=== PATIENT | female | born 1995 | race Caucasian/White ===

== ENCOUNTER 2020-01-07 13:53 | Emergency (ER) | payer OTHER, SELFPAY ==
--- NOTE | 2020-01-07 14:05 | ED.GENADULT ---
HPI - General Adult General Chief complaint: Nausea/Vomiting/Diarrhea Stated complaint: diahrea nausea Time Seen by Provider: 01/07/20 14:14 Source: patient Mode of arrival: ambulatory Limitations: no limitations History of Present Illness HPI narrative: 24-year-old female patient presents to the [facility] with complaints of diarrhea and nausea as well as just feeling overall tired that started today. Patient denies coming into contact with anything that she is allergic to. Patient denies any vomiting. Patient denies or breast-feeding. Denies any fevers, sore throat or cough. Denies any chest pain or shortness of breath. 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 Denies coming into contact with anybody that has had a cold recently. Related Data Allergies Allergy/AdvReac Type Severity Reaction Status Date / Time No Known Allergies Allergy Verified 01/07/20 14:14 Review of Systems Review of Systems: Narrative: CONSTITUTIONAL: Denies fever, chills, or sweats. EYES: Denies visual changes, redness, or discharge. ENT: Denies rhinorrhea, congestion, sore throat, or otalgia. CARDIOVASCULAR: Denies chest pain, palpitations, or edema. RESPIRATORY: Denies cough or dyspnea. GASTROINTESTINAL: Denies abdominal pain, positive nausea, denies vomiting, positive diarrhea. GENITOURINARY: Denies dysuria or hematuria. SKIN: Denies rash or itching. MUSCULOSKELETAL: Denies back pain, joint pain, or myalgia. NEUROLOGIC: Denies headache, numbness, or weakness. PSYCHIATRIC: Denies anxiety or depression. [facility] Past Medical History Medical History (Updated 01/07/20 @ 14:43 by ERIK Do) Anxiety Depression Self-mutilation Comments At the time of my signature I agree with nursing past medical history, surgical, social, and family history. There is no relevant family history pertinent to the presenting complaint. Exam Narrative: Exam Narrative: GENERAL: Well-appearing, well-nourished, and in no acute distress. HEAD: Normocephalic, atraumatic. EYES: PERRLA and EOMI. ENT: Nares clear, no rhinorrhea or epistaxis. Mucous membranes moist. Posterior pharynx no erythema, tonsil enlargement, exudates or lesions present. Bilateral TMs are clear no erythema or foreign bodies in the canal. NECK: Supple. No lymphadenopathy CHEST: Clear to auscultation. No respiratory distress. HEART: Regular rate and rhythm. No murmur heard. Normal peripheral pulses. ABDOMEN: Soft, flat, nondistended. No guarding, rebound tenderness, or rigid. No pulsatilla masses. Bowel sounds present in all four quadrants. No organomegaly. Negative Cintron?s sign. No periumbicial tenderness. No Supra public tenderness or distension. Good femoral pulses bilaterally. No hernia noted. No scars or surface trauma. EXTREMITIES: Normal range of motion. No edema. SKIN: Warm, dry, no rash. NEURO: No focal deficits. Alert and oriented x3. Course Reevaluation(s) Reevaluation #1: Reevaluated patient after receiving Zofran. Patient states that she feels slightly better. Discussed with patient that we will discharge her home with Zofran, Pepcid and dicyclomine. Discussed with her that very important that she continues to stay well-hydrated and if her symptoms get worse including vomiting, fevers or she develops abdominal pain then I would advise her to go to the ER for further evaluation and treatment. Patient verbalized understanding denies any other questions or concerns at this time. Date: 01/07/20 Time: 14:45 Vital Signs Vital signs: Vital Signs Temperature 36.8 C 01/07/20 14:10 Pulse Rate 78 01/07/20 14:10 Respiratory Rate 14 01/07/20 14:10 Blood Pressure 123/77 01/07/20 14:10 Pulse Oximetry 100 01/07/20 14:10 Temperature 36.8 C 01/07/20 14:10 Pulse Rate 78 01/07/20 14:10 Respiratory Rate 14 01/07/20 14:10 Blood Pressure 123/77 01/07/20 14:10 Pulse Oximetry 100 01/07/20 14:10 Vital signs reviewed. Medi
[2020-01-07 14:10] VITALS: BP 123/77; PULSE 78; RESP 14; TEMP 36.8; O2SAT 100
[2020-01-07] MEDS: ONDANSETRON HCL ODT 4 MG TABLET PO (14:26)
== END 2020-01-07 14:56 | disposition home or self-care (01) ==
PROVIDERS: Emergency Provider Nurse Practitioner Family
DX: K52.9 Noninfective gastroenteritis and colitis, unspecified (principal)
CPT/HCPCS: 99213; A9270; G0463